=== PATIENT | male | born 1945 | race Two or more races ===

== ENCOUNTER 2018-01-23 12:34 | Emergency (ER) | payer OTHER ==
[~2018-01-23] VITALS: Ht 167.6 cm; Wt 113.4 kg
[2018-01-23] MEDS ORDERED: METFORMIN HCL500 MG (20:13)
[2018-01-23] MEDS ORDERED: TOPROL XL25 M1 (20:13)
[2018-01-23] MEDS ORDERED: COZAAR25 MG (20:13)
[2018-01-23] MEDS ORDERED: ASA81 MG (20:13)
[2018-01-24] MEDS ORDERED: TAMS0.4C PO (07:48)
[2018-01-24] MEDS ORDERED: ULTRAM50 MG PO (07:48)
== END 2018-01-24 08:33 | disposition home or self-care (01) ==
LOC: ER 12:34
DX: N20.1 Calculus of ureter (principal)

== ENCOUNTER 2018-02-27 08:55 | Outpatient (CLI) | payer OTHER ==
[~2018-02-27 08:55] MED LIST: ASA81 MG; COZAAR25 MG; METFORMIN HCL500 MG; TAMS0.4C PO; TOPROL XL25 M1; ULTRAM50 MG PO
== END 2018-02-27 09:12 | disposition home or self-care (01) ==
LOC: SONOGRAMA 08:55
DX: R10.84 Generalized abdominal pain (principal); K80.20 Calculus of gallbladder without cholecystitis without obstruction; N20.0 Calculus of kidney

== ENCOUNTER 2018-08-03 10:40 | Outpatient (CLI) | payer OTHER | END 2018-08-03 11:00 | disposition home or self-care (01) | LOC: NUCLEAR 10:40 | DX: I87.2 Venous insufficiency (chronic) (peripheral) (principal) ==

== ENCOUNTER 2018-08-04 11:08 | Outpatient (CLI) | payer OTHER | END 2018-08-04 12:00 | disposition home or self-care (01) | LOC: NUCLEAR 11:08 | DX: I87.2 Venous insufficiency (chronic) (peripheral) (principal); I73.9 Peripheral vascular disease, unspecified ==

== ENCOUNTER 2019-02-08 21:11 | Inpatient (IN) | payer OTHER ==
[~2019-02-08] VITALS: Ht 167.6 cm; Wt 122.5 kg
[2019-02-08] MEDS ORDERED: CLOPIDOGREL BIS75 MG (21:31)
[2019-02-08] MEDS ORDERED: METOPROLOL SUCC50 MG (21:33)
[2019-02-08] MEDS ORDERED: COZAAR50 MG (21:34)
== END 2019-02-12 09:33 | disposition home or self-care (01) | DRG 68 ==
LOC: ER 21:11 → MEDJ 02-09 09:00
PROVIDERS: ADMIT Internal Medicine Cardiovascular Disease
PROC: 4A12X4Z Monitoring of Cardiac Electrical Activity, External Approach (ICD-10-PCS; principal; 2019-02-09)
PROC: B345ZZZ Ultrasonography of Bilateral Common Carotid Arteries (ICD-10-PCS; 2019-02-09)
PROC: B348ZZZ Ultrasonography of Bilateral Internal Carotid Arteries (ICD-10-PCS; 2019-02-09)
PROC: B030ZZZ Magnetic Resonance Imaging (MRI) of Brain (ICD-10-PCS; 2019-02-09)
PROC: B246ZZZ Ultrasonography of Right and Left Heart (ICD-10-PCS; 2019-02-10)
DX: I65.23 Occlusion and stenosis of bilateral carotid arteries (principal); M62.82 Rhabdomyolysis; N20.1 Calculus of ureter; E11.9 Type 2 diabetes mellitus without complications; I10 Essential (primary) hypertension; R14.0 Abdominal distension (gaseous); S30.0XXA Contusion of lower back and pelvis, initial encounter; W18.39XA Other fall on same level, initial encounter; Y93.89 Activity, other specified; Y92.012 Bathroom of single-family (private) house as the place of occurrence of the external cause; Y99.8 Other external cause status; M54.5 Low back pain
CPT/HCPCS: 70551

== ENCOUNTER 2019-04-04 08:48 | Outpatient (CLI) | payer OTHER ==
[~2019-04-04 08:48] MED LIST changes: +CLOPIDOGREL BIS75 MG; +COZAAR50 MG; +METOPROLOL SUCC50 MG
== END 2019-04-04 11:00 | disposition home or self-care (01) ==
LOC: NUCLEAR 08:48
DX: G30.1 Alzheimer's disease with late onset (principal)
CPT/HCPCS: 78814; A9552

== ENCOUNTER 2019-08-17 12:17 | Outpatient (CLI) | payer OTHER | END 2019-08-17 12:24 | disposition home or self-care (01) | LOC: RAD 12:17 | DX: M54.5 Low back pain (principal) ==

== ENCOUNTER 2021-10-01 12:03 | Outpatient (CLI) | payer OTHER | END 2021-10-01 12:05 | disposition home or self-care (01) | LOC: RAD 12:03 | PROVIDERS: ATTEND Ophthalmology | DX: Z98.41 Cataract extraction status, right eye (principal); H25.011 Cortical age-related cataract, right eye ==

== ENCOUNTER 2024-08-05 15:01 | Inpatient (IN) | payer OTHER ==
[~2024-08-05] VITALS: Ht 170.2 cm; Wt 117.9 kg
--- NOTE | 2024-08-05 15:28 | NUR ---
SE RECIBE PTE ALERTA Y ORIENTADO EL CUAL REFIERE VENIR POR CELULITIS EN PIERNA DERECHA DESDE EL LUNES. PTE REFIERE ESTAR EN ANTIBIOTICOS AL MOMENTO. FAMILIAR DE PTE REFIERE TRAERLO POR DAVE PRESION. SE MIDEN S/V Y SE NAHID BP MANUAL 160/80MMHG. PTE SE UBICA.
[2024-08-05 17:44] LABS: HEMATOCRIT 38.6 % (39.0-48.0); HEMOGLOBIN 13.5 g/dL (13-16.00); MEAN CELL VOLUME 92.3 fL (80.0-100.00); MEAN CORPUSCULAR HEMOGLOBIN 32.3 pg (27.00-32.0); PLATELET COUNT 177 K/uL (150-450); RED BLOOD COUNT 4.18 M/uL (4.00-6.00); RED CELL DISTRIBUTION WIDTH 13.4 % (11.5-14.5)
[2024-08-05 17:55] LABS: ALBUMIN 3.4 gm/dL (3.4-5.0); BILIRUBIN TOTAL 0.45 mg/dL (0.3-1.2); CALCIUM 8.2 mg/dL (8.5-10.1); CREATININE SERUM 0.99 mg/dL (0.70-1.30); GFR 72.92; GLOBULINA 4.3 G/DL (2.4-3.5); POTASSIUM 3.75 mEq/L (3.5-5.1); TOTAL PROTEIN 7.7 gm/dL (6.4-8.2)
[2024-08-05 18:05] LABS: PH,URINE 5.5 (5.0-8.0); URINE APPEARANCE Clear; URINE BILIRRUBIN Negative (NEGATIVE); URINE BLOOD Negative; URINE COLOR Yellow; URINE GLUCOSE Negative (NEGATIVE); URINE KETONE Negative (NEGATIVE); URINE LEUKOCYTE Negative; URINE NITRATE Negative; URINE UROBILINOGEN 0.2 E.U./dl
[2024-08-05 18:09] LABS: URINE EPITHELIAL CELLS 2.6 uL (0.0-38.8); URINE RBC 4.2 uL (0.0-20.8); URINE WBC 3.9 uL (0.0-23.2)
[2024-08-05 18:13] LABS: URINE PROTEIN 100 (NEGATIVE)
[2024-08-05 18:20] LABS: ERYTHROCYTE SEDIMENTATION RATE 16 mm/hr
[2024-08-05] MEDS ORDERED: PIPERACILLIN/TAZOBACTAM SODIUM 3.375 GM VIAL IV ONE (19:30)
[2024-08-05] MEDS ORDERED: 0.9 % SODIUM CHLORIDE 1,000 ML IV SCH (20:30)
[2024-08-05] MEDS ORDERED: DONEPEZIL HCL 10 MG TABLET PO SCH (20:34)
[2024-08-05] MEDS ORDERED: ACETAMINOPHEN 500 MG GEL..CAP PO PRN (20:45)
[2024-08-05] MEDS ORDERED: TRAZODONE HCL 50 MG TABLET PO SCH (21:00)
[2024-08-05] MEDS ORDERED: TEMAZEPAM 15 MG CAPSULE PO SCH (21:00)
[2024-08-06] MEDS ORDERED: PIPERACILLIN/TAZOBACTAM SODIUM 3.375 GM in DEXTROSE 5 % IN WATER 100 ML IV SCH
[2024-08-06 00:01] VITALS: BP 158/81; O2SAT 95
[2024-08-06 00:24] LABS: D DIMER 1.3 MG/L; INR 0.97; PARTIAL THROMBOPLASTIN TIME 26.6 SECONDS (22.0-34.0); PROTHROMBIN TIME 10.6 SECONDS (9.0-11.5)
[2024-08-06 05:40] VITALS: BP 160/100
[2024-08-06] MEDS ORDERED: FAMOTIDINE/PF 20 MG in 0.9 % SODIUM CHLORIDE 8 ML IV PUSH SCH (09:00)
[2024-08-06] MEDS ORDERED: ENOXAPARIN SODIUM 40 MG/0.4 ML SYRINGE SUBCUTANEO SCH (09:00)
[2024-08-06] MEDS ORDERED: OXYBUTYNIN CHLORIDE 5 MG TABLET PO SCH (09:00)
[2024-08-06] MEDS ORDERED: LOSARTAN POTASSIUM 50 MG TABLET PO SCH (09:00)
[2024-08-06] MEDS ORDERED: METOPROLOL SUCCINATE 50 MG TAB.SR.24H PO SCH (09:00)
[2024-08-06 09:48] VITALS: BP 188/80
[2024-08-06] MEDS ORDERED: PATIENTS OWN MEDICATION (MEDICAMENTO EN PISO) PO SCH (10:25)
[2024-08-06] MEDS ORDERED: SODIUM CHLORIDE 0.45 % 1,000 ML IV SCH (10:30)
[2024-08-06] MEDS ORDERED: LOSARTAN/HYDROCHLOROTHIAZIDE 1 TAB TABLET PO NR (10:45)
[2024-08-06] MEDS ORDERED: CLOPIDOGREL BISULFATE 75 MG TABLET PO NR (10:45)
[2024-08-06 15:09] LABS: FREE TRIODOTIRONINE 2.3 pg/ml (2.18-3.98); T4 FREE 1.15 NG/ML (0.76-1.46)
[2024-08-06 15:11] LABS: TSH 0.165 uIU/mL (0.358-3.74)
[2024-08-06] MEDS ORDERED: DONEPEZIL HCL 10 MG TABLET PO SCH (17:00)
[2024-08-06 18:38] VITALS: BP 150/80; O2SAT 99
[2024-08-06] MEDS ORDERED: FAMOtidine 40 MG TABLET PO SCH (21:00)
[2024-08-06] MEDS ORDERED: VANCOMYCIN HCL 1,000 MG VIAL IV SCH (21:00)
[2024-08-06] MEDS ORDERED: TRAZODONE HCL 50 MG TABLET PO SCH (21:00)
[2024-08-06] MEDS ORDERED: ALPRAzolam 1 MG TABLET PO SCH (21:00)
[2024-08-07 01:38] VITALS: BP 155/85; O2SAT 98
[2024-08-07 06:40] LABS: HEMATOCRIT 38.8 % (39.0-48.0); HEMOGLOBIN 13.5 g/dL (13-16.00); MEAN CELL VOLUME 92.1 fL (80.0-100.00); MEAN CORPUSCULAR HEMOGLOBIN 32.2 pg (27.00-32.0); MEAN CORPUSCULAR HGB CONC 34.9 g/dl (32.0-36.0); PLATELET COUNT 157 K/uL (150-450); RED BLOOD COUNT 4.21 M/uL (4.00-6.00); RED CELL DISTRIBUTION WIDTH 13.6 % (11.5-14.5)
[2024-08-07 07:03] LABS: ALBUMIN 3.3 gm/dL (3.4-5.0); BILIRUBIN TOTAL 0.65 mg/dL (0.3-1.2); CALCIUM 8.4 mg/dL (8.5-10.1); CREATININE SERUM 0.96 mg/dL (0.70-1.30); GFR 75.56; GLOBULINA 3.5 G/DL (2.4-3.5); POTASSIUM 3.78 mEq/L (3.5-5.1); TOTAL PROTEIN 6.8 gm/dL (6.4-8.2)
[2024-08-07 07:04] LABS: C-REACTIVE PROTEIN 0.87 MG/DL (0.00-0.29)
[2024-08-07 08:59] VITALS: BP 178/88
[2024-08-07] MEDS ORDERED: RIVAROXABAN 10 MG TAB PO SCH (09:00)
[2024-08-07] MEDS ORDERED: CLOPIDOGREL BISULFATE 75 MG TABLET PO SCH (09:00)
[2024-08-07] MEDS ORDERED: LOSARTAN/HYDROCHLOROTHIAZIDE 1 TAB TABLET PO SCH (09:00)
[2024-08-07 18:13] LABS: HEMATOCRIT 39.4 % (39.0-48.0); HEMOGLOBIN 13.4 g/dL (13-16.00); MEAN CELL VOLUME 93.6 fL (80.0-100.00); MEAN CORPUSCULAR HEMOGLOBIN 31.8 pg (27.00-32.0); PLATELET COUNT 168 K/uL (150-450); RED BLOOD COUNT 4.21 M/uL (4.00-6.00)
[2024-08-08 01:37] VITALS: BP 173/73
[2024-08-08 10:11] VITALS: BP 181/87; O2SAT 97
[2024-08-08] MEDS ORDERED: AMLODIPINE BESYLATE 5 MG TABLET PO SCH (17:00)
[2024-08-08 18:20] VITALS: BP 160/79; O2SAT 98
[2024-08-09 02:13] VITALS: BP 190/100
[2024-08-09 05:30] VITALS: BP 175/80
[2024-08-09 08:00] VITALS: BP 170/95
[2024-08-09 09:37] LABS: anti thy < 1.0 IU/mL (0.0-0.9); tpo 14 IU/mL (0-34)
[2024-08-09] MEDS ORDERED: AMLODIPINE BESYLATE 10 MG TABLET PO SCH (17:00)
[2024-08-09 19:51] VITALS: BP 155/80; O2SAT 96
[2024-08-10 04:08] VITALS: BP 167/77
[2024-08-10] MEDS ORDERED: METOPROLOL SUCCINATE 100 MG TAB.SR.24H PO SCH (09:00)
[2024-08-10 09:31] VITALS: BP 160/55
[2024-08-10 18:59] VITALS: BP 160/78; O2SAT 96
== END 2024-08-10 19:26 | disposition home or self-care (01) | DRG 300 ==
LOC: ER 15:03 → MEDJ 21:17
PROVIDERS: General Practice; Internal Medicine Infectious Disease; Preventive Medicine Public Health & General Preventive Medicine; ADMIT Internal Medicine; ATTEND Internal Medicine
PROC: B54DZZZ Ultrasonography of Bilateral Lower Extremity Veins (ICD-10-PCS; principal; 2024-08-05)
PROC: BQ47ZZZ Ultrasonography of Right Knee (ICD-10-PCS; 2024-08-10)
DX: E11.51 Type 2 diabetes mellitus with diabetic peripheral angiopathy without gangrene (principal); L03.115 Cellulitis of right lower limb; E11.628 Type 2 diabetes mellitus with other skin complications; G30.8 Other Alzheimer's disease; F02.80 Dementia in other diseases classified elsewhere, unspecified severity, without behavioral disturbance, psychotic disturbance, mood disturbance, and anxiety; I10 Essential (primary) hypertension; E78.5 Hyperlipidemia, unspecified

== ENCOUNTER 2025-02-17 07:25 | Emergency (ER) | payer OTHER ==
[~2025-02-17] VITALS: Ht 170.2 cm; Wt 117.9 kg
[2025-02-17] MEDS ORDERED: INTESTINEX680 M1 PO (07:41)
[2025-02-17] MEDS ORDERED: PLAVIX75 MG (07:41)
[2025-02-17] MEDS ORDERED: LOPERAMIDE2 M1 (07:41)
[2025-02-17] MEDS ORDERED: OXYBUTYNIN CHLO10 MG PO (07:42)
[2025-02-17] MEDS ORDERED: ROSUVASTATIN CA10 MG PO (07:42)
[2025-02-17] MEDS ORDERED: TRAZODONE HCL150 MG (07:43)
[2025-02-17] MEDS ORDERED: ARICEPT10 MG (07:43)
[2025-02-17] MEDS ORDERED: XANAX XR3 MG (07:44)
[2025-02-17] MEDS ORDERED: TAPAZOLE5 MG PO (07:45)
[2025-02-17] MEDS ORDERED: ZETIA10 MG (07:45)
[2025-02-17] MEDS ORDERED: RESTORIL15 MG PO (07:45)
[2025-02-17] MEDS ORDERED: NORVASC10 MG PO (07:46)
[2025-02-17] MEDS ORDERED: PEPCID AC20 MG (07:46)
[2025-02-17] MEDS ORDERED: TOPROL XL100 M1 (07:46)
[2025-02-17] MEDS ORDERED: ACETAMINOPHEN 500 MG GEL..CAP PO ONE (08:30)
== END 2025-02-17 10:36 | disposition home or self-care (01) ==
LOC: ER 07:25
DX: S42.291A Other displaced fracture of upper end of right humerus, initial encounter for closed fracture (principal); S92.414A Nondisplaced fracture of proximal phalanx of right great toe, initial encounter for closed fracture; S50.01XA Contusion of right elbow, initial encounter; S40.021A Contusion of right upper arm, initial encounter; W06.XXXA Fall from bed, initial encounter; Y93.89 Activity, other specified; Y92.122 Bedroom in nursing home as the place of occurrence of the external cause; Y99.9 Unspecified external cause status; I10 Essential (primary) hypertension; G30.9 Alzheimer's disease, unspecified; F02.80 Dementia in other diseases classified elsewhere, unspecified severity, without behavioral disturbance, psychotic disturbance, mood disturbance, and anxiety